=== PATIENT | male | born 1995 ===

== ENCOUNTER 2023-02-25 13:47 | Emergency (ER) | payer OTHER, SELFPAY ==
[2023-02-25 14:05] VITALS: BP 160/96; PULSE 106; RESP 18; TEMP 36.6; O2SAT 97; BMI 25.0
--- NOTE | 2023-02-25 14:15 | PC.NURSE ---
Pt's wound on finger is open, nondraining, white around the edges, no redness. Through education provided how the wound needs to be open to air or gauze and no longer wrapped with waterproof tape.
== END 2023-02-25 15:07 | disposition left against medical advice (07) ==
PROVIDERS: Emergency Provider Emergency Medicine
CPT/HCPCS: 99281